=== PATIENT | female | born 1955 | race Caucasian/White ===

== ENCOUNTER 2020-07-24 08:24 | Emergency (ER) | payer OTHER, SELFPAY ==
[2020-07-24 08:33] VITALS: BP 166/88; PULSE 108; RESP 16; TEMP 37; O2SAT 99
--- NOTE | 2020-07-24 08:57 | ED_ITS ---
HPI - Extremity Injury (Lower) General Chief Complaint: Extremity Injury, Lower Stated Complaint: hit left leg with door Time Seen by Provider: 07/24/20 08:40 Source: patient Mode of arrival: Ambulatory Limitations: no limitations History of Present Illness HPI Narrative: Patient here with . Patient from had a state visiting/during. Patient got out of the car and corner of the door hit the left lower lateral leg. Area that she has problems with a vein that sometimes bleeds. Patient is on blood thinners. Patient has a triangular shaped skin tear to this area. In total length measures 4 cm. Bloodless field on examination. Patient does not want any stitches or any Steri-Strips. Related Data Previous Rx's Medication Instructions Recorded cephalexin 500 mg PO QID #20 cap 07/24/20 Allergies Allergy/AdvReac Type Severity Reaction Status Date / Time No Known Drug Allergies Allergy Verified 07/24/20 08:33 Review of Systems Review of Systems Narrative: GENERAL: Denies chills, fatigue, malaise, fever, sweats. MUSCULOSKELETAL: denies weakness, joint pain, or bony pain SKIN: Denies rash, skin lesions, or other NEUROLOGIC: Denies weakness, headache, numbness, change in speech, confusion, seizures, incoordination. PSYCHIATRIC: No concerning psychosocial issues. ROS Unobtainable: All systems reviewed & are unremarkable except as noted in HPI and below Exam Narrative Exam Narrative: GENERAL: patient appears stated age. Well-nourished, well- developed patient, in no distress, not toxic HEAD: Atraumatic. Normocephalic. EXTREMITIES: No edema or joint tenderness. Left knee to ankle exposed. There is a triangular shaped 4 cm in total length skin tear at the distal lateral leg. Bloodless field. No bone or muscle injury or tendon injury seen. No foreign body. Patient does not want he Steri-Strips or attempt for suturing as skin is very thin and may tear. She states area bleeds very easily and may continue/restart bleeding. No bleeding at this time. NEURO: AOx4 SKIN: No rash or erythema of visible areas PSYCH: Not anxious, is cooperative Initial Vital Signs Initial Vital Signs: Vital Signs Temperature 98.6 F 07/24/20 08:33 Pulse Rate 108 H 07/24/20 08:33 Respiratory Rate 16 07/24/20 08:33 Blood Pressure 166/88 H 07/24/20 08:33 Pulse Oximetry 99 07/24/20 08:33 Course Orders Ordered: Discontinued Medications Cephalexin HCl (Keflex) 500 mg PO NOW ONE Stop: 07/24/20 08:57 Last Admin: 07/24/20 09:04 Dose: 500 mg Documented by: CHINMAY Diphtheria/Tetanus/Acell Pertussis (Adacel) 0.5 ml IM .ONCE ONE Stop: 07/24/20 08:57 Last Admin: 07/24/20 09:05 Dose: 0.5 ml Documented by: CHINMAY Vital Signs Vital signs: Vital Signs - 8 hr 07/24/20 08:33 Temperature 98.6 F Pulse Rate 108 H Respiratory Rate 16 Blood Pressure 166/88 H Pulse Oximetry 99 MDM - Extremity Injury (Lower) Differential Diagnosis Differential diagnosis: Likely other (Skin tear) MDM Narrative Medical decision making narrative: Appropriate for discharge home. No imaging as patient does not want any imaging. They need to catch a tour boat for whale watching in 40 minutes Discharge Plan Departure Patient Disposition: Home Clinical Impression: Skin tear of left lower leg without complication Qualifiers: Encounter type: initial encounter Qualified Code(s): S81.812A - Laceration without foreign body, left lower leg, initial encounter Discharge Date/Time: 07/24/20 10:11 Instructions: Skin Wound Activity Restrictions/Additional Instructions: Change dressing twice a day with warm soap and water and then allow to air dry. Apply thin layer of topical antibiotic/Neosporin and then nonocclusive dressing. May shower but no submersion of the leg under water. Return if worse if any questions concerns. See family doctor when you return home. Prescriptions: New cephalexin 500 mg capsule 500 mg PO QID Qty: 20 RF: 0
[2020-07-24] MEDS: cephALEXin 250 MG CAPSULE 500 MG PO (09:04)
[2020-07-24] MEDS: TET,DIPH,PERTUSS(ACELL),VAC/PF 0.5 ML SYRINGE IM (09:05)
[2020-07-24 09:23] VITALS: BP 160/45; PULSE 98; RESP 14; O2SAT 100
== END 2020-07-24 10:11 | disposition home or self-care (01) ==
PROVIDERS: Emergency Provider Emergency Medicine
DX: S81.812A Laceration without foreign body, left lower leg, initial encounter (principal); W22.8XXA Striking against or struck by other objects, initial encounter; Z23 Encounter for immunization
CPT/HCPCS: 90471; 99283; 90715